=== PATIENT | male | born 1990 | race Caucasian/White ===

== ENCOUNTER 2020-10-27 14:04 | Emergency (ER) | payer SELFPAY ==
[2020-10-27] MEDS ORDERED: dexAMETHasone 10 MG/ML VIAL ONE (16:04)
--- NOTE | 2020-10-27 16:13 | RAD REPORT ---
EXAM DESCRIPTION: RAD - Knee Right 3 View - 10/27/2020 3:21 pm CLINICAL HISTORY: PAIN COMPARISON: No comparisonsNone. FINDINGS: No fracture, dislocation or periosteal reaction.No joint effusion seen. 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 No foreign body or other soft tissue abnormality. Mild congestion or edema in the subcutaneous fatty tissues around the knee. IMPRESSION: No acute bone or joint finding of the right knee. Clinical concerns for internal derangement or occult bony injury could be further assessed with MR im aging.
--- NOTE | 2020-10-27 16:18 | EDPHYS ---
Physician Documentation [facility] Name: Mike Urban Age: 30 yrs Sex: Male : 1990 Arrival Date: 10/27/2020 Time: 14:06 Bed 12 Private MD: ED Physician Jarocho Servin HPI: 10/27 16:03 This 30 yrs old Male presents to ER via Ambulatory with complaints of Knee pm1 Injury. 16:03 The patient presents with pain, swelling. The complaints affect the right knee. pm1 Context: The problem was sustained at work, resulted from an unknown cause, the patient can fully bear weight, the patient is able to ambulate, Problem is a result from a previous injury: No. Onset: The symptoms/episode began/occurred 1 week(s) ago. Modifying factors: The symptoms are alleviated by Rest. the symptoms are aggravated by bending knee, Straightening out leg. Associated signs and symptoms: Pertinent positives: swelling, of the Proximal aspect of right knee, Pertinent negatives calf tenderness, fever. Treatment prior to arrival includes: over the counter medications, NSAIDS. Severity of symptoms: in the emergency department the symptoms are actually worse. The patient has not experienced similar symptoms in the past. The patient has not recently seen a physician. Historical: - Allergies: 14:08 No Known Allergies; aa5 - PMHx: 14:08 None; aa5 - PSHx: 14:09 Hand; aa5 - Immunization history:: Client reports having NOT received the Covid vaccine. - Social history:: Smoking status: Patient reports the use of cigarette tobacco products, denies chronic smoking, but will smoke occasionally. ROS: 16:03 Constitutional: Negative for fever, chills, and weight loss, Cardiovascular: Negative pm1 for chest pain, palpitations, and edema, Respiratory: Negative for shortness of breath, cough, wheezing, and pleuritic chest pain. 16:03 Skin: Negative for injury, rash, and discoloration, Neuro: Negative for headache, weakness, numbness, tingling, and seizure. 16:03 MS/extremity: Positive for pain, of the right knee, Negative for decreased range of motion, deformity. 16:03 All other systems are negative. Exam: 16:03 Constitutional: This is a well developed, well nourished patient who is awake, alert, pm1 and in no acute distress. Head/Face: Normocephalic, atraumatic. 16:03 Skin: Warm, dry with normal turgor. Normal color with no rashes, no lesions, and no evidence of cellulitis. 16:03 Eyes: Exam is negative for acute changes, Extraocular movements: no acute changes, Conjunctiva: normal, no injection. 16:03 ENT: Exam is negative for acute changes, Mouth: no acute changes, Lips: normal, moist, Oral mucosa: normal, pink and intact, moist. 16:03 Cardiovascular: Exam negative for acute changes, Rate: normal, Rhythm: regular, Pulses: no pulse deficits are appreciated. 16:03 Respiratory: Exam negative for acute changes, respiratory distress, shortness of breath. 16:03 Musculoskeletal/extremity: Extremities: grossly normal except: noted in the Anterior proximal aspect of right knee: swelling, tenderness, There is no evidence of decreased ROM, deformity. 16:03 Neuro: Exam negative for acute changes, Orientation: is normal, Mentation: is normal, Motor: is normal, moves all fours. Vital Signs: 14:09 BP 144 / 92; Pulse 82; Resp 18 S; Temp 98.5(TE); Pulse Ox 100% on R/A; Weight 90.72 kg aa5 (R); Height 5 ft. 9 in. (175.26 cm); 14:09 Body Mass Index 29.53 (90.72 kg, 175.26 cm) aa5 MDM: 14:23 Patient medically screened. pm1 16:06 Data reviewed: vital signs. Data interpreted: Pulse oximetry: on room air is 100 %. pm1 Interpretation: normal. 16:15 Counseling: I had a detailed discussion with the patient and/or guardian regarding: the pm1 historical points, exam findings, and any diagnostic results supporting the discharge/admit diagnosis, radiology results, the need for outpatient follow up, a orthopedic surgeon, to return to the emergency department if symptoms worsen or persist or if there are any questions or concerns that arise at home. 16:56 ED course: [place] reviewed . pm1 10/27 14:43 Order name: Knee Right 3 View XRAY; Complete Time: 16:15 pm1 10/27 16:32 Order name: Knee Immobilizer; Complete Time: 17:03 pm1 Administered Medications: 15:43 Drug: Decadron (dexamethasone) 10 mg Route: IM; Site: right deltoid; tr6 16:45 Follow up: Response: No adverse reaction aa5 Disposition: 17:09 Co-signature as Attending Physician, Jarocho Servin MD I agree with the assessment and kdr plan of care. Disposition Summary: 10/27/20 16:17 Discharge Ordered Location: Home pm1 Problem: new pm1 Symptoms: have improved pm1 Condition: Stable pm1 Diagnosis - Pain in right knee pm1 Followup: pm1 - With: Emergency Department - When: As needed - Reason: Worsening of condition Followup: pm1 - With: Mike Castillo MD - When: 2 - 3 days - Reason: Recheck today's complaints, Continuance of care, Re-evaluation by your physician Discharge Instructions: - Discharge Summary Sheet pm1 - Crutch Use, Adult pm1 - RICE Therapy for Routine Care of Injuries pm1 - Acute Knee Pain, Adult pm1 - How to Use a Knee Immobilizer pm1 Forms: - Medication Reconciliation Form pm1 - Thank You Letter pm1 - Antibiotic Education pm1 - Prescription Opioid Use pm1 - Work release form pm1 Prescriptions: - acetaminophen-codeine 300-15 mg Oral tablet - take 2 tablet by ORAL route every 6 hours As needed as needed; 20 tablet; pm1 Refills: 0, Product Selection Permitted - Diclofenac Sodium 75 mg Oral tablet,delayed release (DR/EC) - take 1 tablet by ORAL route every 12 hours As needed; 30 tablet; Refills: 0, pm1 Product Selection Permitted - Medrol (Christiano) 4 mg Oral Tablets, Dose Pack - take 1 tablet by ORAL route as directed - follow package instructions; 1 pm1 packet; Refills: 0, Product Selection Permitted Signatures: Dispatcher [employer] EDNE Jarocho Servin MD MD [facility] Isela Garcia RN RN aa5 Gucci Rodriguez, JACOB [employer] pm1 Alise Toussaint, RN RN tr6 Corrections: (The following items were deleted from the chart) 14:09 14:08 PSHx: None; aa5 aa5 17:03 16:32 Crutches ordered. pm1 aa5
--- NOTE | 2020-10-27 16:18 | ER ---
Nurse's Notes [facility] Name: Mike Urban Age: 30 yrs Sex: Male : 1990 Arrival Date: 10/27/2020 Time: 14:06 Bed 12 Private MD: Diagnosis: Pain in right knee Presentation: 10/27 14:08 Chief complaint: Patient states: "I hurt my knee at work and it's been about a week and aa5 now I can hardly walk on it". Pt c/o swelling and pain to right knee. Coronavirus screen: At this time, the client does not indicate any symptoms associated with coronavirus-19. Ebola Screen: Patient negative for fever greater than or equal to 101.5 degrees Fahrenheit, and additional compatible Ebola Virus Disease symptoms. Initial Sepsis Screen: Does the patient meet any 2 criteria? No. Patient's initial sepsis screen is negative. Does the patient have a suspected source of infection? No. Patient's initial sepsis screen is negative. Risk Assessment: Do you want to hurt yourself or someone else? Patient reports no desire to harm self or others. Onset of symptoms was October 2020. 14:08 Method Of Arrival: Ambulatory aa5 14:08 Acuity: MIKE 4 aa5 Historical: - Allergies: 14:08 No Known Allergies; aa5 - PMHx: 14:08 None; aa5 - PSHx: 14:09 Hand; aa5 - Immunization history:: Client reports having NOT received the Covid vaccine. - Social history:: Smoking status: Patient reports the use of cigarette tobacco products, denies chronic smoking, but will smoke occasionally. Assessment: 16:45 Reassessment: Patient is alert, oriented x 3, equal unlabored respirations, skin aa5 warm/dry/pink. Pt refused crutches, knee immobilizer applied to right knee. . 16:45 Reassessment: Pt requested stronger pain medication Rx, RESEARCH PSYCHOLOGIST was notified. . aa5 17:00 Reassessment: Patient is alert, oriented x 3, equal unlabored respirations, skin aa5 warm/dry/pink. Vital Signs: 14:09 BP 144 / 92; Pulse 82; Resp 18 S; Temp 98.5(TE); Pulse Ox 100% on R/A; Weight 90.72 kg aa5 (R); Height 5 ft. 9 in. (175.26 cm); 14:09 Body Mass Index 29.53 (90.72 kg, 175.26 cm) aa5 ED Course: 14:06 Patient arrived in ED. as 14:08 Triage completed. aa5 14:08 Arm band placed on. aa5 14:23 Gucci Rodriguez NP is PHCP. pm1 14:23 Jarocho Servin MD is Attending Physician. pm1 15:21 Knee Right 3 View XRAY In Process Unspecified. EDMS 16:16 Mike Castillo MD is Referral Physician. pm1 17:00 No provider procedures requiring assistance completed. Patient did not have IV access aa5 during this emergency room visit. Administered Medications: 15:43 Drug: Decadron (dexamethasone) 10 mg Route: IM; Site: right deltoid; tr6 16:45 Follow up: Response: No adverse reaction aa5 Outcome: 16:17 Discharge ordered by MD. pm1 17:00 Discharged to home ambulatory, with significant other. aa5 17:00 Condition: stable 17:00 Discharge instructions given to patient, Instructed on discharge instructions, follow up and referral plans. medication usage, Demonstrated understanding of instructions, follow-up care, medications, Prescriptions given X 3. 17:03 Patient left the ED. aa5 Signatures: Dispatcher [employer] Mariana Foley Audri, RN RN aa5 Gucci Rodriguez NP RESEARCH PSYCHOLOGIST pm1 Alise Toussaint RN RN tr6 Corrections: (The following items were deleted from the chart) 14: 14:08 PSHx: None; aa5 aa5
[2020-10-27 17:10] VITALS: BP 144/92; TEMP 98.5; O2SAT 100
== END 2020-10-27 17:03 | disposition home or self-care (01) ==
LOC: ER 14:04
DX: M25.561 Pain in right knee (principal); F17.210 Nicotine dependence, cigarettes, uncomplicated
CPT/HCPCS: 96372; 99283; J1100